=== PATIENT | female | born 1985 | race Caucasian/White ===

== ENCOUNTER → 2024-09-05 | Outpatient (CLI) | payer BC ==
--- NOTE | 2024-09-05 14:57 | MM ---
Reason for Exam: Screening (asymptomatic). Baseline mammogram. Patient History: Menarche at age 14. First Full-Term at age 25. Perimenopausal. Patient has history of breast feeding. Risk Values: Nuzhat 5 year model risk: 0.6%. NCI Lifetime model risk: 10.2%. Prior Study Comparison: Patient's first Mammogram. No prior studies available for comparison. Tissue Density: There are scattered areas of fibroglandular density. Findings: Analyzed By CAD. There is no suspicious group of microcalcifications in either breast. Nodular density upper outer right breast 15 cm from the nipple. Additional views are recommended. The breasts are otherwise homogeneous. Overall Assessment: Incomplete: need additional imaging evaluation, BI-RAD 0 Management: Diagnostic Mammogram of the right breast. . Patient should continue monthly self-breast exams. A clinical breast exam by your physician is recommended on an annual basis. This exam should not preclude additional follow-up of suspicious palpable abnormalities. Note on Nuzhat scores and lifetime risk: 1. A Nuzhat score greater than 3% is considered moderate risk. If this is the case, consider specialist referral to assess eligibility for a risk reducing agent. 2. If overall lifetime risk for the development of breast cancer is 20% or higher, the patient may qualify for future screening with alternating mammogram and breast MRI. [facility], , 09/05/2024 10:11 AM. Electronically signed and approved by: Marco Rodríguez M.D. Radiologis
== END | disposition home or self-care (01) ==
LOC: RADMAMWWP 09:46
PROVIDERS: ATTEND Family Medicine
DX: Z12.31 Encounter for screening mammogram for malignant neoplasm of breast (principal); R92.323 Mammographic fibroglandular density, bilateral breasts
CPT/HCPCS: 77063; 77067

== ENCOUNTER → 2024-09-06 | Outpatient (CLI) | payer BC ==
--- NOTE | 2024-09-06 07:54 | MM ---
Reason for Exam: Additional evaluation requested from abnormal screening. Last screening mammogram was performed less than 1 month ago. Patient History: Menarche at age 14. First Full-Term at age 25. Perimenopausal. Patient has history of breast feeding. Risk Values: Nuzhat 5 year model risk: 0.6%. NCI Lifetime model risk: 10.2%. Prior Study Comparison: 09/05/2024 Bilateral MG 3D screening mammo w/cad, [facility]. Tissue Density: Right: There are scattered areas of fibroglandular density. Findings: Analyzed By CAD. Persistent probable cyst cluster upper outer right breast 15 cm from the nipple measuring 2.4 cm in greatest dimension. Ultrasound correlation is recommended. Overall Assessment: Incomplete: need additional imaging evaluation, BI-RAD 0 Management: Diagnostic Breast Ultrasound of the right breast. . Results were given to the patient verbally at the time of exam. Patient should continue monthly self-breast exams. A clinical breast exam by your physician is recommended on an annual basis. This exam should not preclude additional follow-up of suspicious palpable abnormalities. Note on Nuzhat scores and lifetime risk: 1. A Nuzhat score greater than 3% is considered moderate risk. If this is the case, consider specialist referral to assess eligibility for a risk reducing agent. 2. If overall lifetime risk for the development of breast cancer is 20% or higher, the patient may qualify for future screening with alternating mammogram and breast MRI. [facility], , 09/06/2024 7:50 AM. Electronically signed and approved by: Marco Rodríguez M.D. Radiologis
--- NOTE | 2024-09-06 08:21 | USB ---
Reason for Exam: Additional evaluation requested from abnormal screening. Patient History: Menarche at age 14. First Full-Term at age 25. Perimenopausal. Patient has history of breast feeding. Risk Values: Nuzhat 5 year model risk: 0.6%. NCI Lifetime model risk: 10.2%. Technique: Method: Targeted. Prior Study Comparison: 09/05/2024 Bilateral MG 3D screening mammo w/cad, [facility]. Findings: The upper outer quadrant of the right breast, the axilla of the right breast and the retroareolar of the right breast were scanned. At the right 10:00 position 7 cm from the nipple there is a simple cyst measuring 2 x 0.35 cm. Additional slightly complex cyst noted at the right 10:00 position 9 cm from the nipple measuring 8 x 4 mm. Six-month follow-up is advised. No suspicious solid masses present. Overall Assessment: Probably benign, BI-RAD 3 Management: Diagnostic Breast Ultrasound of the right breast in 6 months. A clinical breast exam by your physician is recommended on an annual basis and results should be correlated with mammographic findings. This exam should not preclude additional follow-up of suspicious palpable abnormalities. Results were given to the patient verbally at the time of exam. [facility], , 09/06/2024 8:18 AM. Electronically signed and approved by: Marco Rodríguez M.D. Radiologis
== END | disposition home or self-care (01) ==
LOC: RADMAMWWP 07:25
PROVIDERS: ATTEND Family Medicine
DX: R92.8 Other abnormal and inconclusive findings on diagnostic imaging of breast (principal); R92.321 Mammographic fibroglandular density, right breast
CPT/HCPCS: 77061; 77065